=== PATIENT | female | born 1980 | race Caucasian/White ===

== ENCOUNTER 2018-05-25 12:08 | Emergency (ER) | payer BC, OTHER ==
--- NOTE | 2018-05-25 13:31 | RAD REPORT ---
EXAM DESCRIPTION: VAS - Extremity Venous Uni Ltd - 05/25/2018 1:22 pm CLINICAL HISTORY: PAIN Leg swelling and edema. COMPARISON: No comparisons FINDINGS: Left lower extremity venous system was interrogated with Doppler technique. Normal flow, c ompressibility and augmentation was noted. There is no DVT present. IMPRESSION: No evidence of left lower extremity deep venous thrombosis.
--- NOTE | 2018-05-25 13:32 | RAD REPORT ---
EXAM DESCRIPTION: VAS - Lower Extremity Artery Uni Ltd - 05/25/2018 1:22 pm CLINICAL HISTORY: PAIN COMPARISON: No comparisons FINDINGS: Grayscale, color, power and spectral Doppler interrogation of left lower extremity arteria l system was performed. An YADIEL was not performed. Triphasic waveforms are seen throughout. No stenosis or occlusion. No significant flow abnormality. IMPRESSION: Normal examination.
--- NOTE | 2018-05-25 13:44 | EDPHYS ---
Physician Documentation [facility] Name: Rand Prieto Age: 37 yrs Sex: Female : 1980 Arrival Date: 05/25/2018 Time: 12:13 Bed 13 Private MD: out of town, doctor ED Physician Rudy Fallon HPI: 05/25 13:16 This 37 yrs old Female presents to ER via Ambulatory with complaints of Leg rn Swelling. 13:16 The patient presents with pain, swelling. The complaints affect the posterior aspect of rn left knee and left calf. Onset: The symptoms/episode began/occurred at an unknown time. Modifying factors: The symptoms are alleviated by OTC meds, remaining still, the symptoms are aggravated by movement, weight bearing, bending knee. Severity of symptoms: At their worst the symptoms were mild, in the emergency department the symptoms are unchanged. The patient has not experienced similar symptoms in the past. 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 No risk factors for DVT, also no trauma, hurts more to bend knee and walk.. 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 - Social history:: Smoking status: Patient/guardian denies using tobacco. - Family history:: not pertinent. - Ebola Screening: : Patient denies travel to an Ebola-affected area in the 21 days before illness onset No symptoms or risks identified at this time. - Hospitalizations: : No recent hospitalization is reported. ROS: 13:16 Constitutional: Negative for fever, chills, and weight loss, Eyes: Negative for injury, rn pain, redness, and discharge, Cardiovascular: Negative for chest pain, palpitations, and edema, Respiratory: Negative for shortness of breath, cough, wheezing, and pleuritic chest pain, Abdomen/GI: Negative for abdominal pain, nausea, vomiting, diarrhea, and constipation, MS/Extremity: Negative for injury and deformity, + leg swelling and pain Skin: Negative for injury, rash, and discoloration, Neuro: Negative for headache, weakness, numbness, tingling, and seizure. Exam: 13:16 Constitutional: This is a well developed, well nourished patient who is awake, alert, rn and in no acute distress. MS/ Extremity: Pulses equal, no cyanosis. Neurovascular intact. Full, normal range of motion. Mild tenderness posterior knee and proximal calf, with approx 2cm greater diameter. No erythema, no fluctuance. Vital Signs: 12:49 BP 117 / 83; Pulse 101; Resp 20; Temp 97.8(TE); Pulse Ox 98% on R/A; Weight 68.04 kg; ph Height 5 ft. 4 in. (162.56 cm); Pain 5/10; 13:55 BP 110 / 77; Pulse 77; Resp 16; Pulse Ox 98% on R/A; mb3 12:49 Body Mass Index 25.75 (68.04 kg, 162.56 cm) ph MDM: 12:55 Patient medically screened. rn 13:43 Differential diagnosis: bakers cyst, DVT, arterial insufficiency. Data reviewed: vital rn signs, nurses notes, radiologic studies, doppler, ultrasound, and as a result, I will discharge patient. Counseling: I had a detailed discussion with the patient and/or guardian regarding: the historical points, exam findings, and any diagnostic results supporting the discharge/admit diagnosis, radiology results, the need for outpatient follow up, to return to the emergency department if symptoms worsen or persist or if there are any questions or concerns that arise at home. Special discussion: I discussed with the patient/guardian in detail that at this point there is no indication for admission to the hospital. It is understood, however, that if the symptoms persist or worsen the patient needs to return immediately for re-evaluation. 05/25 12:54 Order name: Lower Extremity Artery [employer] US; Complete Time: 13:45 rn 05/25 12:54 Order name: Extremity Venous [employer] US; Complete Time: 13:45 rn Administered Medications: No medications were administered Disposition: 05/25/18 13:44 Discharged to Home. Impression: Left Lower extremity swelling. - Condition is Stable. - Discharge Instructions: Edema, Peripheral Edema. - Medication Reconciliation Form, Thank You Letter, Antibiotic Education, Prescription Opioid Use form. - Follow up: Private Physician; When: As needed; Reason: Recheck today's complaints, Re-evaluation by your physician. - Problem is new. - Symptoms are unchanged. Signatures: Dispatcher [employer] EDRudy Hogue MD MD rn Hall, Patricia, RN RN Eber Rodriguez RN RN mb3 Corrections: (The following items were deleted from the chart) 13:57 13:44 05/25/2018 13:44 Discharged to Home. Impression: Left Lower extremity swelling. mb3 Condition is Stable. Forms are Medication Reconciliation Form, Thank You Letter, Antibiotic Education, Prescription Opioid Use. Follow up: Private Physician; When: As needed; Reason: Recheck today's complaints, Re-evaluation by your physician. Problem is new. Symptoms are unchanged. rn
--- NOTE | 2018-05-25 13:44 | ER ---
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 Transition of care: patient was not received from another setting of care. Onset of symptoms was May 25, 2018. Risk Assessment: Do you want to hurt yourself or someone else? Patient reports no desire to harm self or others. Initial Sepsis Screen: Does the patient meet any 2 criteria? No. Patient's initial sepsis screen is negative. Does the patient have a suspected source of infection? No. Patient's initial sepsis screen is negative. Care prior to arrival: None. 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 - Social history:: Smoking status: Patient/guardian denies using tobacco. - Family history:: not pertinent. - Ebola Screening: : Patient denies travel to an Ebola-affected area in the 21 days before illness onset No symptoms or risks identified at this time. - Hospitalizations: : No recent hospitalization is reported. Screenin:56 Abuse screen: Denies threats or abuse. Nutritional screening: No deficits noted. mb3 Tuberculosis screening: No symptoms or risk factors identified. Fall Risk None identified. Assessment: 13:50 General: Appears in no apparent distress. comfortable, Behavior is calm, cooperative, mb3 appropriate for age. Pain: Complains of pain in left calf Pain radiates to left hamstring, left Achilles and left heel. Neuro: No deficits noted. Cardiovascular: No deficits noted. Respiratory: No deficits noted. GI: No deficits noted. No signs and/or symptoms were reported involving the gastrointestinal system. : No signs and/or symptoms were reported regarding the genitourinary system. EENT: No signs and/or symptoms were reported regarding the EENT system. Derm: No deficits noted. No signs and/or symptoms reported regarding the dermatologic system. Vital Signs: 12:49 BP 117 / 83; Pulse 101; Resp 20; Temp 97.8(TE); Pulse Ox 98% on R/A; Weight 68.04 kg; ph Height 5 ft. 4 in. (162.56 cm); Pain 5/10; 13:55 BP 110 / 77; Pulse 77; Resp 16; Pulse Ox 98% on R/A; mb3 12:49 Body Mass Index 25.75 (68.04 kg, 162.56 cm) ph ED Course: 12:13 Patient arrived in ED. sb2 12:13 out of town, doctor is Private Physician. sb2 12:48 Triage completed. ph 12:49 Arm band placed on. ph 12:55 Rudy Fallon MD is Attending Physician. rn 12:55 Eber Aquino, RN is Primary Nurse. mb3 13:23 Lower Extremity Artery Uni Ltd US In Process Unspecified. EDMS 13:23 Extremity Venous Uni Ltd US In Process Unspecified. EDMS 13:50 No provider procedures requiring assistance completed. Patient did not have IV access mb3 during this emergency room visit. 13:56 Patient has correct armband on for positive identification. mb3 Administered Medications: No medications were administered Outcome: 13:44 Discharge ordered by . rn 13:56 Discharged to home ambulatory. mb3 13:56 Condition: stable 13:56 Discharge instructions given to patient, Instructed on discharge instructions, follow up and referral plans. Demonstrated understanding of instructions, follow-up care. 13:57 Patient left the ED. mb3 Signatures: Dispatcher [employer] EDMS Rudy Fallon MD MD rn Hall, Patricia RN RN Riya Long 2 Eber Aquino, RN RN mb3
[2018-05-25 14:00] VITALS: TEMP 97.8; O2SAT 98
[2018-05-25 14:01] VITALS: BP 110/77
== END 2018-05-25 13:57 | disposition home or self-care (01) ==
LOC: ER 12:08
DX: M79.89 Other specified soft tissue disorders (principal)
CPT/HCPCS: 93926; 93971; 99283

== ENCOUNTER 2019-01-19 06:46 | Emergency (ER) | payer OTHER ==
--- OUTSIDE RECORDS SUMMARY | 2019-01-19 06:48 | XMS REPORT ---
:1980 [facility] Address [address] [place] [address] Dr. Mai [address] [place] [id number] Care Team Providers Name Role Phone Unavailable Unavailable Unavailable Problems This patient has no known problems. Allergies, Adverse Reactions, Alerts This patient has no known allergies or adverse reactions. Medications This patient has no known medications.
--- NOTE | 2019-01-19 08:33 | RAD REPORT ---
EXAM DESCRIPTION: RAD - Chest Pa And Lat (2 Views) - 01/19/2019 7:55 am CLINICAL HISTORY: Cough, chest pressure and tightness COMPARISON: August 2016 TECHNIQUE: PA and lateral views of the chest were obtained. FINDINGS: The lungs are normal volume. No peripheral mass or consolidation. No failure or volume ove rload. Left parahilar region shows a rounded mass with central lucency. There is no correlate on the lateral view. This is believed to be a summation of normal structures mimicking a mass. Heart size is normal and central vasculature is within normal limits. No pleural effusion or pneumot horax seen. No acute bony finding noted. No aortic abnormality. IMPRESSION: No acute cardiopulmonary process. No significant change comparison. Repeat imaging or follow-up CT imaging could be performed if the patient remains symptomatic.
--- NOTE | 2019-01-19 08:52 | ER ---
Nurse's Notes [facility] Name: Rand Prieto Age: 38 yrs Sex: Female : 1980 Arrival Date: 01/19/2019 Time: 06:48 Bed 20 Private MD: Diagnosis: Acute upper respiratory infection, unspecified Presentation: 01/19 07:04 Presenting complaint: Patient states: having a cough with thick sputum for 2 days, also em having chest pressure and tightness, denies SOB, fever, or body aches. Transition of care: patient was not received from another setting of care. Onset of symptoms was January 17, 2019. Risk Assessment: Do you want to hurt yourself or someone else? Patient reports no desire to harm self or others. Initial Sepsis Screen: Does the patient meet any 2 criteria? HR > 90 bpm. No. Patient's initial sepsis screen is negative. Does the patient have a suspected source of infection? No. Patient's initial sepsis screen is negative. Care prior to arrival: None. 07:04 Method Of Arrival: Ambulatory em 07:16 Acuity: OLE 4 sv Triage Assessment: 07:11 General: Appears in no apparent distress. comfortable, Behavior is calm, cooperative. em Pain: Complains of pain in mid-sternal area Pain currently is 4 out of 10 on a pain scale. Cardiovascular: Capillary refill < 3 seconds Patient's skin is warm and dry. Respiratory: Airway is patent Respiratory effort is even, unlabored, Respiratory pattern is regular, symmetrical. 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 - Social history:: Smoking status: Patient/guardian denies using tobacco. - Ebola Screening: : Patient negative for fever greater than or equal to 101.5 degrees Fahrenheit, and additional compatible Ebola Virus Disease symptoms Patient denies exposure to infectious person Patient denies travel to an Ebola-affected area in the 21 days before illness onset No symptoms or risks identified at this time. Screenin:13 Abuse screen: Denies threats or abuse. Nutritional screening: No deficits noted. em Tuberculosis screening: No symptoms or risk factors identified. Fall Risk None identified. Assessment: 07:11 General: Appears in no apparent distress. comfortable, Behavior is calm, cooperative, em Denies fever. Pain: Complains of pain in mid-sternal area Pain does not radiate. Quality of pain is described as pressure, tightness Pain began 2-3 days ago. Neuro: Level of Consciousness is awake, alert, obeys commands, Oriented to person, place, time, situation, Gait is steady, Speech is normal. Cardiovascular: Reports shortness of breath, Denies nausea, vomiting, Capillary refill < 3 seconds Patient's skin is warm and dry. Respiratory: Reports cough that is productive, pain with cough since 2 days ago Airway is patent Respiratory effort is even, unlabored, Respiratory pattern is regular, symmetrical, Breath sounds are clear bilaterally. Denies shortness of breath. GI: Abdomen is flat, Patient currently denies nausea, vomiting. EENT: Nares are clear Oral mucosa is moist. Derm: Skin is intact, is healthy with good turgor, Skin is pink, warm \T\ dry. Musculoskeletal: Capillary refill < 3 seconds, Range of motion: intact in all extremities. 07:11 Reassessment: I agree with assessment completed by Austin Donaldson LVN . aa5 08:01 Reassessment: Patient appears in no apparent distress at this time. Patient and/or em family updated on plan of care and expected duration. Pain level reassessed. Patient is alert, oriented x 3, equal unlabored respirations, skin warm/dry/pink. pending x-ray results. Vital Signs: 07:11 BP 127 / 82; Pulse 102; Resp 20; Temp 98.5(O); Pulse Ox 98% on R/A; Weight 68.04 kg; em Height 5 ft. 5 in. (165.10 cm); Pain 4/10; 08:00 BP 117 / 87; Pulse 100; Resp 18; Pulse Ox 96% on R/A; em 07:11 Body Mass Index 24.96 (68.04 kg, 165.10 cm) em ED Course: 06:48 Patient arrived in ED. es 07:04 Austin Donaldson LVN is Primary Nurse. em 07:11 Virgilio White PA is PHCP. cp 07:11 Adriano Calvo MD is Attending Physician. cp 07:11 Arm band placed on. em 07:13 Patient has correct armband on for positive identification. Bed in low position. Call em light in reach. Pulse ox on. NIBP on. 07:13 Patient maintains SpO2 saturation greater than 95% on room air. em 07:16 Triage completed. sv 07:28 Flu and/or RSV swab sent to lab. Strep swab sent to lab. ms 07:41 Patient moved to radiology via wheelchair. jb2 07:54 X-ray completed. Patient tolerated procedure well. Patient moved back from radiology. jb2 07:56 XRAY Chest Pa And Lat (2 Views) In Process Unspecified. EDMS 09:20 No provider procedures requiring assistance completed. Patient did not have IV access em during this emergency room visit. Administered Medications: No medications were administered Outcome: 08:52 Discharge ordered by MD. cp 09:20 Discharged to home ambulatory. em 09:20 Condition: good 09:20 Discharge instructions given to patient, Instructed on discharge instructions, follow up and referral plans. medication usage, Demonstrated understanding of instructions, follow-up care, medications, Prescriptions given X 3. 09:21 Patient left the ED. em Signatures: Dispatcher [employer] Amna Castaneda, Kimberley Jacques RN, Jesse jb2 Austin Donaldson, QUOTATION CHECKER QUOTATION CHECKER Estefany Barriga ms, Audri, RN RN aa5 Virgilio White, PA PA cp
--- NOTE | 2019-01-19 08:53 | EDPHYS ---
Physician Documentation [facility] Name: Rand Prieto Age: 38 yrs Sex: Female : 1980 Arrival Date: 01/19/2019 Time: 06:48 Bed 20 Private MD: ED Physician Adriano Calvo HPI: 01/19 07:15 This 38 yrs old Female presents to ER via Ambulatory with complaints of cp Cough, Chest Congestion, Chest Tightness. 07:15 The patient or guardian reports cough, with productive sputum. Onset: The cp symptoms/episode began/occurred 2 day(s) ago. Associated signs and symptoms: Pertinent positives: sore throat, chest tightness, Pertinent negatives: chest pain, diarrhea, fever, vomiting. 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 - Social history:: Smoking status: Patient/guardian denies using tobacco. - Ebola Screening: : Patient negative for fever greater than or equal to 101.5 degrees Fahrenheit, and additional compatible Ebola Virus Disease symptoms Patient denies exposure to infectious person Patient denies travel to an Ebola-affected area in the 21 days before illness onset No symptoms or risks identified at this time. ROS: 07:20 Constitutional: Negative for chills, fever, poor PO intake. cp 07:20 Eyes: Negative for injury, pain, redness, and discharge. cp 07:20 ENT: Positive for sore throat, Negative for drainage from ear(s), ear pain, difficulty swallowing, difficulty handling secretions. 07:20 Respiratory: Positive for cough, Negative for wheezing. 07:20 Abdomen/GI: Negative for abdominal pain, nausea and vomiting, diarrhea, constipation. 07:20 : Negative for urinary symptoms. 07:20 Skin: Negative for rash. 07:20 Neuro: Negative for headache. 07:20 All other systems are negative. Exam: 07:28 Constitutional: The patient appears in no acute distress, alert, awake, non-toxic, well cp developed, well nourished. 07:28 Head/Face: Normocephalic, atraumatic. cp 07:28 Eyes: Periorbital structures: appear normal, Conjunctiva: normal, no exudate, no injection, Lids and lashes: appear normal, bilaterally. 07:28 ENT: External ear(s): are unremarkable, Ear canal(s): are normal, clear, TM's: bulging, is not appreciated, bilaterally, dullness, bilaterally, erythema, is not appreciated, bilaterally, Nose: is normal, Mouth: Lips: moist, Oral mucosa: moist, Posterior pharynx: Airway: no evidence of obstruction, patent, Tonsils: no enlargement, no exudate, Uvula: midline, erythema, that is mild, exudate, is not appreciated. 07:28 Neck: ROM/movement: is normal, is supple, without pain, no range of motions limitations, no meningismus, no nuchal rigidity. 07:28 Chest/axilla: Inspection: normal, Palpation: is normal, no crepitus, no tenderness. 07:28 Cardiovascular: Rate: tachycardic, Rhythm: regular. 07:28 Respiratory: the patient does not display signs of respiratory distress, Respirations: normal, no use of accessory muscles, no retractions, no splinting, no tachypnea, labored breathing, is not present, Breath sounds: decreased breath sounds, are not appreciated, stridor, is not appreciated, wheezing: is not appreciated. 07:28 Abdomen/GI: Inspection: abdomen appears normal. 07:28 Skin: no rash present. Vital Signs: 07:11 BP 127 / 82; Pulse 102; Resp 20; Temp 98.5(O); Pulse Ox 98% on R/A; Weight 68.04 kg; em Height 5 ft. 5 in. (165.10 cm); Pain 4/10; 08:00 BP 117 / 87; Pulse 100; Resp 18; Pulse Ox 96% on R/A; em 07:11 Body Mass Index 24.96 (68.04 kg, 165.10 cm) em MDM: 07:11 Patient medically screened. cp 07:35 Differential Diagnosis: Bronchitis Influenza Otitis Media Viral Syndrome Pneumonia. cp 08:50 Data reviewed: vital signs, nurses notes, lab test result(s), radiologic studies, plain cp films. 08:50 Test interpretation: by ED physician or midlevel provider: plain radiologic studies. cp Counseling: I had a detailed discussion with the patient and/or guardian regarding: the historical points, exam findings, and any diagnostic results supporting the discharge/admit diagnosis, lab results, radiology results, to return to the emergency department if symptoms worsen or persist or if there are any questions or concerns that arise at home. 01/19 07:21 Order name: Influenza Screen (a \T\ B); Complete Time: 08:11 cp 01/19 08:12 Interpretation: Reviewed. cp 01/19 07:21 Order name: Strep cp 01/19 08:12 Interpretation: Reviewed. 01/19 07:21 Order name: XRAY Chest Pa And Lat (2 Views); Complete Time: 08:34 cp 01/19 08:34 Interpretation: Report reviewed. 01/19 07:21 Order name: Urine Dipstick-Ancillary (obtain specimen); Complete Time: 07:28 cp 01/19 07:34 Order name: Urine Dipstick--Ancillary (enter results) eb 01/19 07:34 Order name: Urine --Ancillary (enter results) eb 01/19 07:21 Order name: Urine Test (obtain specimen); Complete Time: 07:28 cp Administered Medications: No medications were administered Disposition: 01/19/19 08:52 Discharged to Home. Impression: Acute upper respiratory infection, unspecified. - Condition is Stable. - Discharge Instructions: Upper Respiratory Infection, Adult. - Prescriptions for Ibuprofen 800 mg Oral Tablet - take 1 tablet by ORAL route every 8 hours As needed take with food; 30 tablet. Tessalon Perles 100 mg Oral Capsule - take 1 capsule by ORAL route every 8 hours As needed; 15 capsule. Albuterol Sulfate 90 mcg/actuation - inhale 1-2 puff by INHALATION route every 4-6 hours; 1 Inhaler. - Medication Reconciliation Form, Thank You Letter, Antibiotic Education, Prescription Opioid Use form. - Follow up: Private Physician; When: 2 - 3 days; Reason: Worsening of condition. - Problem is new. - Symptoms are unchanged. Addendum: 01/21/2019 19:42 Co-signature as Attending Physician, Adriano Calvo MD. g s Signatures: Dispatcher [employer] Austin Fitzpatrick, MEDICAL CLAIMS SPECIALIST MEDICAL CLAIMS SPECIALIST em Virgilio White PA PA cp Starr, Gregory, MD MD gs Corrections: (The following items were deleted from the chart) 01/19 09:21 08:52 01/19/2019 08:52 Discharged to Home. Impression: Acute upper respiratory em infection, unspecified. Condition is Stable. Forms are Medication Reconciliation Form, Thank You Letter, Antibiotic Education, Prescription Opioid Use. Follow up: Private Physician; When: 2 - 3 days; Reason: Worsening of condition. Problem is new. Symptoms are unchanged. cp
[2019-01-19 09:22] LABS: Urine Blood NEGATIVE (NEG); Urine Glucose NEGATIVE (NEG); Urine Protein NEGATIVE (NEG)
[2019-01-19 09:26] VITALS: TEMP 98.5
[2019-01-19 09:28] VITALS: BP 117/87; O2SAT 96
== END 2019-01-19 09:21 | disposition home or self-care (01) ==
LOC: ER 06:46
DX: J06.9 Acute upper respiratory infection, unspecified (principal)
CPT/HCPCS: 71046; 81003; 81025; 87081; 87804; 99284

== ENCOUNTER 2021-01-04 18:14 | Emergency (ER) | payer OTHER, SELFPAY ==
--- OUTSIDE RECORDS SUMMARY | 2021-01-04 18:16 | XMS REPORT | Continuity of Care Document ---
:1980 Author Organization [facility] t Address [address] [place] [address] Care Team Providers Name Role Phone GLENCROSS Attending Clinician Unavailable 2, Wlns Covid Surv Attending Clinician Unavailable Surv, Wlns Covid Attending Clinician Unavailable Green ISSUER Attending Clinician Doctor Unassigned, Name Attending Clinician Unavailable Bernardo Campbell Attending Clinician Payers Payer Name Policy Type Policy Effective Date Expiration Date Sour ce Number BCBSBCBS CHOICE [id number] 2015 [place] PPO/FEDERAL 00:00:00 [facility] EMPL [id number] 2015-Pres entPPO Problems This patient has no known problems. Allergies, Adverse Reactions, Alerts Allergy Allergy Status Severity Reaction(s) Onset Inactive Treating Comm ents Source Name Type Date Date Clinician No Known No Known Active Memori a Medicati Medicati l on on [place] Allergie Allergie s s Social History Social Habit Start Date Stop Date Quantity Comments Source Sex Assigned At [place] barcenas [facility] Smoking Status Start Date Stop Date Source Social History [facility] Medications Ordered Filled Start Stop Current Ordering Indication Dosage Frequency Signature Comments Components Source Medication Medication Date Date Medication? Clinician (SIG) Name Name etodolac Yes 500 mg = 1 Mem oria 500 mg oral 9-27 tab, PO, l tablet 18:06: BID, with Jefferson n 00 foods prn pain, # 30 tab, 0 Refill(s), Pharmacy: [id number] Cyclobenzap Yes 10 mg = 1 M emoria rine 9-27 tab, PO, l hydrochlori 18:06: TID, PRN He rmann de 10 MG 00 for spasm, Oral Tablet # 15 tab, [Flexeril] 0 Refill(s), Pharmacy: [facility] #[id number] tramadol 2019- Yes 50 mg = 1 Guillaumemelba [place] hydrochlori 9-27 tab, PO, l de 50 MG 18:06: Q6H, PRN Shaista nn Oral Tablet 00 Pain, X 3 day, # 12 tab, 0 Refill(s) Escitalopra 2019 Yes 10 mg = 1 M emoria m 10 MG -27 tab, PO, l Oral Tablet 16:52: Daily, # He rmann [Lexapro] 00 30 tab, 0 Refill(s) Immunizations Ordered Immunization Filled Immunization Date Status Commen ts Source Name Name EyeVerifyID-19 MRNA 2020-11-15 Completed [place] VACCINATION 00:00:00 [facility] PFIZER COVID-19 MRNA 2020-10-22 Completed [place] VACCINATION 00:00:00 [facility] Vital Signs Vital Name Observation Time Observation Value Comments Source Systolic (mm Hg) 2019-08-03 16:25:00 Guillaume riadanielle [place] Diastolic (mm Hg) 2019-08-03 16:25:00 [facility] orial [place] Heart Rate 2019-08-03 16:25:00 [facility] Respitory Rate 2019-08-03 16:25:00 Laure Allen Temperature Oral (F) 2019-08-03 16:25:00 97.5 F [facility] Height 2019-08-03 16:25:00 162.56 cm [facility] Weight 2019-08-03 16:25:00 [facility] BMI Calculated 2019-08-03 16:25:00 Laure Allen Procedures Procedure Date / Time Performed Performing Clinician Sourshreya e COVID-19 QUALITATIVE PCR 2020-10-23 10:13:00 Maximilian DonohueIDTayler19 QUALITATIVE PCR 2020-10-09 13:43:00 Maximilian Donohue QUALITATIVE PCR 2020-09-01 13:34:00 Maximilian Donohue QUALITATIVE PCR 2020-05-16 11:04:00 Maximilian Donohue MUMPS VIRUS ANTIBODY, 2020-03-18 11:12:00 Maximilian Donohue IGG MEASLES (RUBEOLA) 2020-03-18 11:12:00 Maximilian Donohueu narinder Kumar ANTIBODY IGG RUBELLA AB IGG 2020-03-18 11:12:00 Maximilian Donohuebernardo on [facility] VARICELLA ZOSTER VIRUS 2020-03-18 11:12:00 Maximilian Donohue AB, IGG HEPATITIS B SURFACE 2020-03-18 11:12:00 Maximilian Donohue Deepak [place] [facility] ANTIBODY Plan of Care Planned Activity Planned Date Details Comments Source Future Scheduled 2020-06-07 INFLUENZA VACCINE [place] [facility] Test 00:00:00 [code = INFLUENZA VACCINE] Future Scheduled 2001 Screening for [facility] Test 00:00:00 malignant neoplasm of cervix (procedure) [code = 528653713] Future Scheduled 1998 Hepatitis C [place] [facility] Test 00:00:00 screening (procedure) [code = 051617973] Encounters Start End Encounter Admission Attending Care Care Encounter Source Date/Time Date/Time Type Type Clinicians Facility Department ID 2020-11-15 2020-11-15 Outpatient [facility] [id number] [place] 00:00:00 00:00:00 MAXIMILIAN [address] 2020-10-23 2020-10-23 [id number] [place] 00:00:00 00:00:00 MAXIMILIAN [address] 2020-10-09 2020-10-09 [facility] 2[facility] [id number] [place] 00:00:00 00:00:00 MAXIMILIAN [address] 2020-09-01 2020-09-01 [facility] [id number] [id number] [place] 00:00:00 00:00:00 MAXIMILIAN [address] 2020-08-22 2020-08-22 Outpatient GLENCROSS, [facility] [id number] [place] 00:00:00 00:00:00 MAXIMILIAN [address] 2020-05-16 2020-05-16 Outpatient [facility] [id number] [place] 00:00:00 00:00:[address] 2020-05-16 2020-05-16 Outpatient MARTÍN, [facility] [id number] [place] 00:00:00 00:00:00 MAXIMILIAN 111 [facility] 2020-03-18 2020-03-18 Outpatient [facility] [id number] [address] [place] [address] 00:00:00 00:00:00 127 [facility] 2020-01-12 2020-01-12 [place] [id number] 16:37:16 16:52:16 Care [facility] [id number] Surgical [id number] Specialti [id number] [address] 2020-01-12 2020-01-12 Orders Doctor DONNY [id number] 00:00:00 00:00:00 Only Unassigned, VAISHNAVI [id number] [place] [facility] [id number] 2019-08-03 2019-08-03 Outpatient Le, [facility] [id number] 11:30:00 23:59:59 [facility] 00 T Results Test Description Test Time Test Comments Results Result Comments Source COVID-19 qualitative PCR 2020-10-23 16:22:53 Test Item Value Reference Range Interpretation Comme nts Interpretation (test code = Negative results do not 3848301) preclude 2019-nCoV infection and should not be used as the sole basis for treatment or other patient management decisions. Negative results must be combined with clinical observations, patient history, and epidemiological information. COVID-19 qualitative PCR Not-Detected Not-Detected result (test code = 51381-0) COVID-19 qualitative PCR See link below for PDF Lab Case Number: (test code = 7070) Report [id number] [place] MethodistMumps virus antibody, [id number] 18:20:26 Test Item Value Reference Range Interpretation Comments Mumps Ab, IgG (test code Positive Negative A IgG antibody to = 8581579) Mumps detected. This may indicate th at the patient was exposed to Mump s through infecti on or vaccination. Lab Interpretation (test Abnormal code = 80325-5) [place] MethodistVaricella zoster virus Ab, [id number] 18:20:26 Test Item Value Reference Range Interpretation Comments VZV IgG (test code = Positive Negative A IgG ant ibody to VZV 5403-1) detected. This may indicate that t he patient was exp osed to VZV through infection or vaccination. Lab Interpretation (test Abnormal code = 40308-7) Ambrocio LozaistMeasles (rubeola) antibody [id number] 18:20:26 Test Item Value Reference Range Interpretation Comments Measles (rubeola) Ab, IgG Positive Negative A Ig G antibody to (test code = 1261810) Measle s detected. This may indica te that the patien t was exposed to Parag les through infecti on or vaccination. Lab Interpretation (test Abnormal code = 51465-1) Ambrocio MethodistRubella Ab [id number] 18:19:47 Test Item Value Reference Range Interpretation Comments Rubella IgG antibody Positive Negative IgG ant ibody levels are (test code = 47079-4) at a l evel that are considered to i ndicate positive immuni ty Ambrocio KumarHepatitis B surface [id number] 16:54:19 Test Item Value Reference Range Interpretation Comments Hepatitis B surface Ab (test code = Reactive Non-reactive A 13044-8) Lab Interpretation (test code = Abnormal 04539-7) Ambrocio Kumar
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
[2021-01-04] MEDS ORDERED: IBUPROFEN 200 MG TAB PO ONE (19:08)
[2021-01-04] MEDS ORDERED: IBUPROFEN 400 MG TAB ONE (19:08)
[2021-01-04 21:21] VITALS: BP 136/88; TEMP 98; O2SAT 100
== END 2021-01-04 18:59 | disposition home or self-care (01) ==
LOC: ER 18:14
DX: S16.1XXA Strain of muscle, fascia and tendon at neck level, initial encounter (principal); S40.012A Contusion of left shoulder, initial encounter; V49.09XA Driver injured in collision with other motor vehicles in nontraffic accident, initial encounter; Z98.82 Breast implant status
CPT/HCPCS: 99284

== ENCOUNTER 2024-02-07 14:31 | Observation (INO) | payer OTHER ==
[2024-02-07] MEDS ORDERED: ASPIRIN 81 MG CHEWABLE TABLET ONE (14:48)
--- NOTE | 2024-02-07 15:27 | RAD REPORT ---
EXAM DESCRIPTION: RAD - Chest Single View - 02/07/2024 3:16 pm CLINICAL HISTORY: CHEST PAIN Chest pain. COMPARISON: Chest Pa And Lat (2 Views) dated 01/19/2019; Chest Single View dated 08/23/2016; Chest Pa And Lat (2 Views) dated 08/21/2016 FINDINGS: Portable technique limits examination quality. The lungs are grossly clear. The heart is normal in size. No displaced fractures. IMPRESSION: No acute intrathoracic process suspected.
[2024-02-07 15:36] LABS: Absolute Basophils 0.1 K/uL (0-0.5); Absolute Eosinophils 0.1 K/uL (0-0.5); Absolute Lymphocytes (CBC) 1.6 K/uL (0.7-4.9); Absolute Monocytes 0.4 K/uL (0.1-1.3); Absolute Neutrophil 5.3 K/uL (1.8-8.0); Basophils % 0.8 % (0-1.3); Eosinophils % 0.9 % (0-4.4); Hematocrit 29.7 % (36.0-45.0); Hemoglobin 8.9 g/dL (12.0-15.0); Lymphocytes % 22.1 % (15.3-44.8); MCH 18.2 pg (27.0-35.0); MCHC 29.9 g/dL (32.0-36.0); MCV 60.8 fL (80-100); MPV 8.7 fL (7.6-11.3); Monocytes % 4.9 % (3.3-12.3); Neutrophils % 71.3 % (41.7-73.7); Platelets 400 thou/uL (152-406); RBC Red Blood Cell Count 4.88 M/uL (3.86-4.86); Red Cell Distribution Width 20.1 % (12.1-15.2)
[2024-02-07 15:54] LABS: Albumin 3.9 g/dL (3.4-5.0); Albumin/Globulin Ratio 1.1 (1.1-1.8); Anion Gap 9.3 mEq/L (5.0-15.0); Bilirubin Direct 0.1 mg/dL (0-0.2); Bilirubin Indirect, Calculated 0.3 mg/dL (0.2-0.8); Bilirubin Total 0.4 mg/dL (0.2-1.0); Globulin 3.5 g/dL (2.3-3.5); Magnesium 1.8 mg/dL (1.6-2.4); Potassium 3.3 mEq/L (3.5-5.1); Protein, Total 7.4 g/dL (6.4-8.2); Troponin High Sensitivity 3.2 pg/mL (<58.9)
--- NOTE | 2024-02-07 16:57 | RAD REPORT ---
EXAM DESCRIPTION: CT - Chest For Pe Angio - 02/07/2024 4:50 pm CLINICAL HISTORY: Chest pain. CHEST PAIN COMPARISON: Chest Angio dated 08/21/2016 TECHNIQUE: CT angiogram of the pulmonary arteries was performed with MIP. All CT scans are performed using dose optimization technique as appropriate and may include automated exposure control or mA/KV adjustment according to patient size. FINDINGS: No evidence of pulmonary thromboembolism. No acute aortic finding demonstrated. The lungs are clear. No significant pericardial or pleural fluid. No concerning bony finding. Gallstone noted the gallbladder. IMPRESSION: No evidence of pulmonary thromboembolism. No acute lung findings. Cholelithiasis.
[2024-02-07] MEDS ORDERED: MORPHINE 4 MG/ML SYR ONE (17:07)
[2024-02-07] MEDS ORDERED: ONDANSETRON 4 MG/2 ML VIAL ONE (17:07)
[2024-02-07 17:24] LABS: Anisocytosis 1+; Blood Morphology Comment NOTED (NOT SEEN); Hypochromasia 2+; Microcytosis 2+; Platelet Estimate ADEQ; White Blood Cell Scan OK (OK)
--- NOTE | 2024-02-07 19:07 | ER ---
Nurse's Notes [facility] Name: Rand Prieto Age: 43 yrs Sex: Female : 1980 Arrival Date: 02/07/2024 Time: 14:31 Bed 13 Private MD: Diagnosis: Chest pain, unspecified Presentation: 02/06 14:34 Chief complaint: Patient states: Left upper back pain for about a week, today left nj1 sided chest pain. 14:34 Coronavirus screen: Vaccine status: Patient reports receiving the 2nd dose of the covid nj1 vaccine. Ebola Screen: Patient denies travel to an Ebola-affected area in the 21 days before illness onset. Initial Sepsis Screen: Does the patient meet any 2 criteria? HR > 90 bpm. No. Patient's initial sepsis screen is negative. Does the patient have a suspected source of infection? No. Patient's initial sepsis screen is negative. Risk Assessment: Do you want to hurt yourself or someone else? Patient reports no desire to harm self or others. Onset of symptoms was February 07, 2024. 14:34 Method Of Arrival: Ambulatory [facility] 14:34 Acuity: OLE 3 nj1 Historical: - Allergies: 14:40 No Known Allergies; nj1 - PMHx: 14:40 Anxiety; nj1 - Immunization history:: Client reports receiving the 2nd dose of the Covid vaccine. - Infectious Disease History:: Denies. - Social history:: Smoking status: Patient denies any tobacco usage or history of. - Family history:: not pertinent. Screenin:15 [facility] ED Fall Risk Assessment (Adult) History of falling in the last 3 months, db including since admission No falls in past 3 months (0 pts) Confusion or Disorientation No (0 pts) Intoxicated or Sedated No (0 pts) Impaired Gait No (0 pts) Mobility Assist Device Used No (0 pt) Altered Elimination No (0 pt) Score/Fall Risk Level 0 - 2 = Low Risk Oriented to surroundings, Maintained a safe environment. Abuse screen: Denies threats or abuse. Denies injuries from another. Nutritional screening: No deficits noted. Tuberculosis screening: No symptoms or risk factors identified. Assessment: 15:15 Reassessment: Patient appears in no apparent distress at this time. Patient and/or db family updated on plan of care and expected duration. Pain level reassessed. Patient is alert, oriented x 3, equal unlabored respirations, skin warm/dry/pink. General: Appears in no apparent distress. comfortable, Behavior is calm, cooperative. Pain: Complains of pain in chest Pain radiates to left arm Pain Pain began gradually. Neuro: Level of Consciousness is awake, alert, obeys commands, Oriented to person, place, time, situation. Cardiovascular: Capillary refill < 3 seconds Patient's skin is warm and dry. Respiratory: Airway is patent Respiratory effort is even, unlabored, Respiratory pattern is regular, symmetrical. 16:00 Reassessment: Patient appears in no apparent distress at this time. Patient and/or db family updated on plan of care and expected duration. Pain level reassessed. Patient is alert, oriented x 3, equal unlabored respirations, skin warm/dry/pink. 17:00 Reassessment: Patient appears in no apparent distress at this time. Patient and/or db family updated on plan of care and expected duration. Pain level reassessed. Patient is alert, oriented x 3, equal unlabored respirations, skin warm/dry/pink. 18:00 Reassessment: Patient appears in no apparent distress at this time. Patient and/or db family updated on plan of care and expected duration. Pain level reassessed. Patient is alert, oriented x 3, equal unlabored respirations, skin warm/dry/pink. General: Appears in no apparent distress. comfortable, Behavior is calm, cooperative. 18:30 Reassessment: NOTIFIED DR. HARRIS PATIENT REQUESTING NITRO FOR PAIN 5/10 IN CHEST. db Pain: Pain currently is 5 out of 10 on a pain scale. 19:20 Reassessment: Patient is alert, oriented x 3, equal unlabored respirations, skin jj7 warm/dry/pink. ASSUMED CARE OF PT. PT SITTING IN BED. C/O CP. ORDERED NITRO GIVEN. PT TOLERATING WELL. VS STABLE. CALL ERWIN IN REACH NO ADDITIONAL NEEDS AT THIS TIME. Vital Signs: 14:34 BP 144 / 94; Pulse 114; Resp 18; Temp 97.1(TE); Pulse Ox 99% on R/A; Weight 72.57 kg; nj1 Height 5 ft. 5 in. ; Pain 4/10; 15:15 BP 119 / 62; Pulse 91; Resp 14; Pulse Ox 99% on R/A; db 16:00 BP 116 / 73; Pulse 71; Resp 18; Pulse Ox 100% on R/A; db 17:15 BP 133 / 89; Pulse 79; Resp 16; Pulse Ox 100% on R/A; db 18:00 BP 147 / 81; Pulse 67; Resp 18; Pulse Ox 99% on R/A; db 19:00 BP 125 / 75; Pulse 67; Resp 14; Pulse Ox 99% on R/A; db 19:20 BP 130 / 94; Pulse 74; Resp 18; Pulse Ox 98% ; Pain 5/10; jj7 20:29 BP 134 / 93; Pulse 92; Resp 16; Pulse Ox 100% ; jj7 21:30 BP 117 / 76; Pulse 80; Resp 17; Pulse Ox 99% ; jj7 14:34 Body Mass Index 26.63 (72.57 kg, 165.1 cm) nj1 14:34 Pain Scale: Adult nj1 19:20 Pain Scale: Adult jj7 Vitals: 16:00 Cardiac Rhythm Assessment Regular. db ED Course: 14:32 Patient arrived in ED. mg5 14:33 Familia Harris MD is Attending Physician. rt 14:40 Triage completed. nj1 14:41 Arm band placed on left wrist. nj1 14:44 Mary Jo Camargo RN is Primary Nurse. db 15:00 EKG done, by ED staff, reviewed by Familia Harris MD. db 15:05 Initial lab(s) drawn, by ma, sent to lab. Inserted saline lock: 22 gauge in right db antecubital area, using aseptic technique. Blood collected. 15:15 Patient maintains SpO2 saturation greater than 95% on room air. db 15:18 XRAY Chest (1 view) In Process Unspecified. EDMS 15:27 Patient has correct armband on for positive identification. Bed in low position. Call db light in reach. Side rails up X 1. Provided Education on: LABS AND ANTIBIOTICS. Client placed on continuous cardiac and pulse oximetry monitoring. NIBP monitoring applied. railway station manager on. Pulse ox on. NIBP on. Warm blanket given. 16:52 CT Chest For PE Angio In Process Unspecified. EDMS 19:05 Kyle Grey MD is Hospitalizing Provider. rt 19:05 Report given to OSMAR BOWEN. db 19:39 Taryn Joy RN is Primary Nurse. jj7 21:47 No provider procedures requiring assistance completed. Patient admitted, IV remains in jj7 place. Administered Medications: 14:54 Drug: Aspirin PO Chewable Tablet 324 mg PO once; 81 mg tablets x 4 Route: PO; rs5 20:29 Follow up: Response: No adverse reaction jj7 17:12 Drug: morphine IVP or IV 4 mg IVP once over 4 mins Route: IVP; Infused Over: 4 mins; db Site: right antecubital; 19:20 Follow up: Response: Pain is decreased jj7 17:12 Drug: Ondansetron IVP 4 mg IVP once; over 2 minutes Route: IVP; Site: right antecubital;db 21:48 Follow up: Response: Marked relief of symptoms jj7 19:20 Drug: Nitroglycerin Sublingual 0.4 mg Sublingual once; every five minute if needed x3 jj7 Route: Sublingual; 19:45 Drug: Nitroglycerin Sublingual 0.4 mg Sublingual once; every five minute if needed x3 jj7 Route: Sublingual; 19:50 Drug: Nitroglycerin Sublingual 0.4 mg Sublingual once; every five minute if needed x3 jj7 Route: Sublingual; 20:29 Follow up: Response: Pain is decreased jj7 Medication: 15:15 VIS not applicable for this client. db Outcome: 19:06 Decision to Hospitalize by Provider. rt 20:54 Admitted to Med/surg room 427, Report called to SBAR FAXED TO 4TH FLOOR. CRISTIAN PRASAD jj7 RECEIVED REPORT 21:47 Condition: improved jj7 21:47 Patient left the ED. jj7 Signatures: Dispatcher [employer] EDFL Taryn Joy RN RN jj7 Mary Jo Camargo, RN RN db Familia Harris MD MD rt Mark Claire RN RN rs5 Darline Rosen RN RN nj1 Latasha Avery mg5 Corrections: (The following items were deleted from the chart) 19:42 19:20 BP 122 / 64; Pulse 74bpm; Resp 18bpm; Pulse Ox 97%; Pain 5/10, Adult; jj7 jj7
--- NOTE | 2024-02-07 19:07 | EDPHYS ---
Physician Documentation [facility] Name: Rand Prieto Age: 43 yrs Sex: Female : 1980 Arrival Date: 02/07/2024 Time: 14:31 Bed 13 Private MD: ED Physician Familia Banks HPI: 02/06 14:56 This 43 yrs old Female presents to ER via Ambulatory with complaints of Chest Pain. rt 14:56 Patient presents to the ED with a left-sided chest pain. The patient states that she rt woke up with a left-sided back pain which she attributed to prior chronic back pain. States since he subsequently developed the chest pain. Denies other symptoms, acute complaints, symptoms are moderate in severity, no other aggravating or elevating factors.. Historical: - Allergies: 14:40 No Known Allergies; nj1 - PMHx: 14:40 Anxiety; nj1 - Immunization history:: Client reports receiving the 2nd dose of the Covid vaccine. - Infectious Disease History:: Denies. - Social history:: Smoking status: Patient denies any tobacco usage or history of. - Family history:: not pertinent. ROS: 14:56 Constitutional: Negative for fever, chills, and weight loss, Respiratory: Negative for rt shortness of breath, cough, wheezing, and pleuritic chest pain, Abdomen/GI: Negative for abdominal pain, nausea, vomiting, diarrhea, and constipation, MS/Extremity: Negative for injury and deformity, Skin: Negative for injury, rash, and discoloration, Neuro: Negative for headache, weakness, numbness, tingling, and seizure, 14:56 Cardiovascular: Positive for chest pain, Negative for edema, 14:56 Back: Positive for pain at rest, Negative for injury or acute deformity, Exam: 14:56 Constitutional: This is a well developed, well nourished patient who is awake, alert, rt and in no acute distress. Head/Face: Normocephalic, atraumatic. Neck: Trachea midline, no thyromegaly or masses palpated, and no cervical lymphadenopathy. Supple, full range of motion without nuchal rigidity, or vertebral point tenderness. No Meningismus. Respiratory: Lungs have equal breath sounds bilaterally, clear to auscultation and percussion. No rales, rhonchi or wheezes noted. No increased work of breathing, no retractions or nasal flaring. Abdomen/GI: Soft, non-tender, with normal bowel sounds. No distension or tympany. No guarding or rebound. No evidence of tenderness throughout. Back: No spinal tenderness. No costovertebral tenderness. Full range of motion. Skin: Warm, dry with normal turgor. Normal color with no rashes, no lesions, and no evidence of cellulitis. MS/ Extremity: Pulses equal, no cyanosis. Neurovascular intact. Full, normal range of motion. Neuro: Awake and alert, GCS 15, oriented to person, place, time, and situation. Cranial nerves II-XII grossly intact. Motor strength 5/5 in all extremities. Sensory grossly intact. Cerebellar exam normal. Normal gait. 14:56 ECG was reviewed by the Attending Physician. Vital Signs: 14:34 BP 144 / 94; Pulse 114; Resp 18; Temp 97.1(TE); Pulse Ox 99% on R/A; Weight 72.57 kg; nj1 Height 5 ft. 5 in. ; Pain 4/10; 15:15 BP 119 / 62; Pulse 91; Resp 14; Pulse Ox 99% on R/A; db 16:00 BP 116 / 73; Pulse 71; Resp 18; Pulse Ox 100% on R/A; db 17:15 BP 133 / 89; Pulse 79; Resp 16; Pulse Ox 100% on R/A; db 18:00 BP 147 / 81; Pulse 67; Resp 18; Pulse Ox 99% on R/A; db 19:00 BP 125 / 75; Pulse 67; Resp 14; Pulse Ox 99% on R/A; db 19:20 BP 130 / 94; Pulse 74; Resp 18; Pulse Ox 98% ; Pain 5/10; jj7 20:29 BP 134 / 93; Pulse 92; Resp 16; Pulse Ox 100% ; jj7 21:30 BP 117 / 76; Pulse 80; Resp 17; Pulse Ox 99% ; jj7 14:34 Body Mass Index 26.63 (72.57 kg, 165.1 cm) nj 14:34 Pain Scale: Adult nj1 19:20 Pain Scale: Adult jj7 MDM: 14:41 Patient medically screened. rt 20:51 Differential diagnosis: abnormal EKG, coronary artery disease chest wall pain, rt congestive heart failure Cholelithiasis pneumonia, pneumothorax. HEART Score: History: Moderately Suspicious (1), ECG: Non specific repolarization disturbance / LBTB / PM (1), Age: < or = 45 years (0), Risk Factors: > or = 3 Risk factors for atherosclerotic disease (2), Troponin: < or = 1 x Normal Limit (0), Total Score = 4. The patient was given aspirin in the Emergency Department. Data reviewed: vital signs, nurses notes, lab test result(s), EKG, radiologic studies. Consideration of Admission/Observation Patient was admitted/placed on observation. Management of patient was discussed with the following: Hospitalist: Agrees to admit. I considered the following discharge prescriptions or medication management in the emergency department Medications were administered in the Emergency Department. See MAR. Independent interpretation of the following test(s) in the Emergency Department X-Ray: My interpretation is No pneumonia seen on interpretation of x-ray images. Counseling: I had a detailed discussion with the patient and/or guardian regarding the historical points, exam findings, and any diagnostic results supporting the discharge/admit diagnosis, lab results, radiology results, the need for further work-up and treatment in the hospital. Response to treatment: the patient's symptoms have markedly improved after treatment. 02/06 14:46 Order name: Basic Metabolic Panel; Complete Time: 16:02 rt 02/06 14:46 Order name: CBC with Diff; Complete Time: 17:27 rt 02/06 14:46 Order name: D-Dimer; Complete Time: 16:02 rt 02/06 14:46 Order name: LFT's; Complete Time: 16:02 rt 02/06 14:46 Order name: Magnesium; Complete Time: 16:02 rt 02/06 14:46 Order name: Troponin HS; Complete Time: 16:02 rt 02/06 14:46 Order name: Test, Serum; Complete Time: 16:02 rt 02/06 17:24 Order name: CBC Smear Scan; Complete Time: 17:27 EDMS 02/06 19:48 Order name: Urinalysis w/ reflexes EDMS 02/06 19:48 Order name: CBC with Automated Diff EDMS 02/06 19:48 Order name: CBC with Automated Diff EDMS 02/06 19:48 Order name: Comprehensive Metabolic Panel EDMS 02/06 19:48 Order name: Comprehensive Metabolic Panel EDMS 02/06 19:48 Order name: Troponin High Sensitivity EDMS 02/06 19:48 Order name: Troponin High Sensitivity [facility] 02/06 19:48 Order name: Troponin High Sensitivity [facility] 02/06 19:48 Order name: Troponin High Sensitivity [facility] 02/06 14:46 Order name: XRAY Chest (1 view); Complete Time: 15:31 rt 02/06 16:34 Order name: CT Chest For PE Angio; Complete Time: 16:58 rt 02/06 19:48 Order name: CONS Physician Consult [facility] 02/06 14:46 Order name: Cardiac monitoring; Complete Time: 15:27 rt 02/06 14:46 Order name: EKG - Nurse/Tech; Complete Time: 15:27 rt 02/06 14:46 Order name: IV Saline Lock; Complete Time: 15:27 rt 02/06 14:46 Order name: Labs collected and sent; Complete Time: 15:27 rt 02/06 14:46 Order name: O2 Per Protocol; Complete Time: 15:27 rt 02/06 14:46 Order name: O2 Sat Monitoring; Complete Time: 15:27 rt EC:56 Rate is 94 beats/min. Rhythm is regular, Normal Sinus Rhythm with No ectopy. QRS [place] rt is Normal. VA interval is normal. QRS interval is normal. QT interval is normal. No Q waves. No ST changes noted. Administered Medications: 14:54 Drug: Aspirin PO Chewable Tablet 324 mg PO once; 81 mg tablets x 4 Route: PO; rs5 20:29 Follow up: Response: No adverse reaction jj7 17:12 Drug: morphine IVP or IV 4 mg IVP once over 4 mins Route: IVP; Infused Over: 4 mins; db Site: right antecubital; 19:20 Follow up: Response: Pain is decreased jj7 17:12 Drug: Ondansetron IVP 4 mg IVP once; over 2 minutes Route: IVP; Site: right antecubital;db 21:48 Follow up: Response: Marked relief of symptoms jj7 19:20 Drug: Nitroglycerin Sublingual 0.4 mg Sublingual once; every five minute if needed x3 jj7 Route: Sublingual; 19:45 Drug: Nitroglycerin Sublingual 0.4 mg Sublingual once; every five minute if needed x3 jj7 Route: Sublingual; 19:50 Drug: Nitroglycerin Sublingual 0.4 mg Sublingual once; every five minute if needed x3 jj7 Route: Sublingual; 20:29 Follow up: Response: Pain is decreased jj7 Disposition Summary: 02/07/24 19:06 Hospitalization Ordered Notes: Hospitalization Status: Observation rt Provider: Kyle Grey rt Location: Telemetry/MedSurg (observation) rt Condition: Stable rt Problem: new rt Symptoms: have improved rt Bed/Room Type: Standard rt Room Assignment: 427(02/07/24 20:40) rv1 Diagnosis - Chest pain, unspecified rt Forms: - Medication Reconciliation Form rt - SBAR form rt - Leadership Thank You Letter rt Signatures: Dispatcher [employer] Taryn Means RN RN jj7 Mary Jo Camargo RN RN db Familia Banks MD MD rt Mireille Stokes rv1 Mark Claire, RN RN rs5 Darline Rosen RN RN nj1 Corrections: (The following items were deleted from the chart) 14:46 14:46 BASIC METABOLIC PANEL+C.LAB.BRZ ordered. EDMS EDMS 14:46 14:46 CBC+H.LAB.BRZ ordered. EDMS EDMS 14:46 14:46 D-DIMER+COAG.LAB.BRZ ordered. EDMS EDMS 14:46 14:46 HEPATIC FUNCTION+C.LAB.BRZ ordered. EDMS EDMS 14:46 14:46 MAGNESIUM+C.LAB.BRZ ordered. EDMS EDMS 14:46 14:46 Troponin High Sensitivity+C.LAB.BRZ ordered. EDMS EDMS 14:46 14:46 TEST, SERUM+SC.LAB.BRZ ordered. EDMS EDMS 14:46 14:46 Chest Single View+RAD.RAD.BRZ ordered. EDMS EDMS 16:34 16:34 Chest For PE Angio+CT.RAD.BRZ ordered. EDMS EDMS 20:40 19:06 rt rv1
[2024-02-07] MEDS ORDERED: NITROGLYCERIN 0.4 MG/TAB SL ONE ×2 (19:17→19:45)
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
[2024-02-07] MEDS ORDERED: ZOLPIDEM TARTRATE 5 MG TABLET PO PRN (19:43)
[2024-02-07] MEDS ORDERED: ACETAMINOPHEN 500 MG TAB PO PRN (19:43)
[2024-02-07] MEDS ORDERED: HYDROCODONE/APAP 5/325 MG TAB PO PRN (19:47)
[2024-02-07] MEDS ORDERED: NITROGLYCERIN 0.4 MG/TAB SL PRN (19:49)
[2024-02-07] MEDS: ATORVASTATIN 40 MG TAB PO SCH (22:13)
[2024-02-07 23:05] LABS: Specific Gravity > 1.030 (1.005-1.030); Sqamous Epithelial <5 /HPF (None Seen); Urine Bacteria <20 /HPF (<20); Urine Bilirubin NEGATIVE (Negative); Urine Blood Negative (Negative); Urine Clarity Clear (Clear); Urine Color Colorless (Yellow); Urine Culture Reflex Order NOT NEEDED; Urine Glucose NEGATIVE (Negative); Urine Ketones NEGATIVE (Negative); Urine Microscopic Reflex YN ORDER UMIC; Urine Mucus Slight /HPF (None Seen); Urine Nitrite NEGATIVE (Negative); Urine Protein NEGATIVE (Negative); Urine RBC <5 /HPF (None Seen); Urine Urobilinogen Normal (Normal); Urine WBC <5 /HPF (<5)
[2024-02-07 23:17] VITALS: BMI 26.6
[2024-02-08] MEDS: CODEINE 30MG/APAP 300MG TAB PO PRN ×2 (01:11→23:56)
[2024-02-08 04:08] LABS: Absolute Basophils 0.1 K/uL (0-0.5); Absolute Eosinophils 0.1 K/uL (0-0.5); Absolute Lymphocytes (CBC) 3.1 K/uL (0.7-4.9); Absolute Monocytes 0.7 K/uL (0.1-1.3); Absolute Neutrophil 6.3 K/uL (1.8-8.0); Basophils % 0.9 % (0-1.3); Eosinophils % 1.2 % (0-4.4); Hematocrit 28.1 % (36.0-45.0); Hemoglobin 8.3 g/dL (12.0-15.0); Lymphocytes % 30.3 % (15.3-44.8); MCHC 29.6 g/dL (32.0-36.0); MPV 8.8 fL (7.6-11.3); Monocytes % 6.5 % (3.3-12.3); Neutrophils % 61.1 % (41.7-73.7); Platelets 403 thou/uL (152-406); RBC Red Blood Cell Count 4.61 M/uL (3.86-4.86); Red Cell Distribution Width 19.9 % (12.1-15.2)
[2024-02-08 04:23] LABS: Albumin 3.4 g/dL (3.4-5.0); Anion Gap 6.5 mEq/L (5.0-15.0); Bilirubin Total 0.3 mg/dL (0.2-1.0); Globulin 3.4 g/dL (2.3-3.5); Potassium 3.5 mEq/L (3.5-5.1); Protein, Total 6.8 g/dL (6.4-8.2)
[2024-02-08] MEDS: PANTOPRAZOLE 40MG TABLET PO SCH (05:28)
[2024-02-08] MEDS: ESCITALOPRAM 20 MG TAB PO SCH (08:46)
[2024-02-08] MEDS: ENOXAPARIN 40 MG/0.4 ML SQ SCH (08:46)
[2024-02-08] MEDS: POTASSIUM 25 MEQ EFFERV TAB PO ONE (08:47)
[2024-02-08] MEDS: ASPIRIN EC 81 MG TAB PO SCH (08:47)
--- NOTE | 2024-02-08 14:01 | P.CNS ---
Date of Consult: 02/08/24 Chief Complaint: Chest Pain History of Present Illness: Patient presented with left sided chest pain that lasted all day yesterday got relieved by NTG x3, denies having any other cardiac symptoms. Allergies No Known Allergies Allergy (Verified 02/08/24 01:02) Home Medications: Escitalopram [Lexapro] 20 mg PO DAILY 08/20/16 Acetaminophen with Codeine [Acetaminophen-Cod #4 Tablet] 1 tab PO BEDTIME PRN 02/08/24 - Past Medical/Surgical History Diabetic: No -: Depression -: breast augmentation - Social History Smoking Status: Never smoker Alcohol use: No CD- Drugs: No Caffeine use: Yes Place of Residence: Home Review of Systems 10-point ROS is otherwise unremarkable Physical Examination Temp Pulse Resp BP Pulse Ox 96.6 F L 68 16 118/54 L 99 02/08/24 12:00 02/08/24 12:00 02/08/24 12:00 02/08/24 12:00 02/08/24 12:00 General: Alert, Oriented x3 HEENT: Atraumatic Neck: Supple Respiratory: Clear to auscultation bilaterally Cardiovascular: No edema, Normal S1 S2 Gastrointestinal: Normal bowel sounds Laboratory Data (last 24 hrs) 02/07/24 02/07/24 15:08 15:08 WBC 7.40 Hgb 8.9 L Hct 29.7 L Plt Count 400 Sodium 139 Potassium 3.3 L BUN 17 Creatinine 0.85 Glucose 122 H Magnesium 1.8 Total Bilirubin 0.4 AST 18 ALT 21 Alkaline Phosphatase 107 - Problems (1) Unstable angina Current Visit: Yes Status: Acute Plan: Please keep patient NPO for nuclear stress test in the morning. order nuclear stress test in am.
[2024-02-08 15:12] LABS: Absolute Basophils 0.1 K/uL (0-0.5); Absolute Eosinophils 0.1 K/uL (0-0.5); Absolute Lymphocytes (CBC) 2.1 K/uL (0.7-4.9); Absolute Monocytes 0.4 K/uL (0.1-1.3); Absolute Neutrophil 5.6 K/uL (1.8-8.0); Basophils % 0.9 % (0-1.3); Eosinophils % 1.1 % (0-4.4); Hematocrit 29.5 % (36.0-45.0); Hemoglobin 8.9 g/dL (12.0-15.0); Lymphocytes % 25.4 % (15.3-44.8); MCH 18.4 pg (27.0-35.0); MCHC 30.3 g/dL (32.0-36.0); MCV 60.8 fL (80-100); MPV 8.5 fL (7.6-11.3); Monocytes % 5.4 % (3.3-12.3); Neutrophils % 67.2 % (41.7-73.7); Percent Reticulocyte Count 1.22 % (0.4-2.05); Platelets 406 thou/uL (152-406); RBC Red Blood Cell Count 4.86 M/uL (3.86-4.86); Red Cell Distribution Width 19.9 % (12.1-15.2)
--- NOTE | 2024-02-08 15:55 | P.PN ---
Subjective Date of Service: 02/08/24 Chief Complaint: Chest Pain chest pain relieved with as needed analgesics, nitro, n.p.o. overnight for stress test in the a.m. - Physical Exam General: Alert, In no apparent distress, Oriented x3 HEENT: Atraumatic, Normocephalic, PERRLA, Mucous membr. moist/pink Neck: Supple, 2+ carotid pulse no bruit Respiratory: Clear to auscultation bilaterally, Normal air movement Cardiovascular: No edema, Normal pulses, Regular rate/rhythm, Normal S1 S2 Capillary refill: <2 Seconds Gastrointestinal: Normal bowel sounds, Soft and benign, W/out hepatosplenomegaly Musculoskeletal: No clubbing, No swelling, No contractures Integumentary: No rashes, No breakdown Neurological: Normal speech, Normal strength at 5/5 x4 extr, Cranial nerves 3-12 intact, Normal reflexes 2+, Normal affect Lymphatics: No axilla or inguinal lymphadenopathy c Review of Systems Per HPI Physical Examination - Vital Signs Temperature: 96.6 F Blood Pressure: 118/54 Pulse: 68 Respirations: 16 Pulse Ox (%): 99 - Studies Laboratory Data (last 24 hrs) 02/07/24 02/07/24 15:08 15:08 WBC 7.40 Hgb 8.9 L Hct 29.7 L Plt Count 400 Sodium 139 Potassium 3.3 L BUN 17 Creatinine 0.85 Glucose 122 H Magnesium 1.8 Total Bilirubin 0.4 AST 18 ALT 21 Alkaline Phosphatase 107 Assessment And Plan - Plan Assessment and Plan - Problems (Diagnosis) (1) Unstable angina Current Visit: Yes Status: Acute Plan: Serial cardiac enzymes negative Will monitor telemetry Started on aspirin and statin EKG did not show any acute changes sinus ST-T suggestive of ischemia Patient denies any chest pain Will get an echocardiogram Cardiology consult 02/07 n.p.o. for stress test in a.m. Cholelithiasis Current Visit: Yes Status: Chronic Plan: No signs of any acute cholecystitis Denies any pain in the abdomen Gorman sign is negative Follow-up with surgery as outpatient Anemia Iron panel B12 Full code DVT Diet n.p.o. after midnight Disposition Home in the in the a.m. independent Discharge Plan: Home - Code Status/Comfort Care Code Status: Full Code Critical Care: No Time Spent Managing PTS Care (In Minutes): 35
[2024-02-08 15:56] LABS: Blood Morphology Comment NOTED (NOT SEEN); Hypochromasia 2+; Microcytosis 2+; Platelet Estimate ADEQ; White Blood Cell Scan OK (OK)
[2024-02-08] MEDS: FE SULF/FA/VIT B COMP & C TAB PO SCH (17:41)
[2024-02-08] MEDS: SOD FERRIC GLUC COMPLX/SUCROSE 125 MG in NA CHLORIDE 0.9% 100 ML IV SCH (21:47)
[2024-02-08] MEDS: ONDANSETRON 4 MG/2 ML VIAL IV PRN (23:28)
[2024-02-09 03:02] VITALS: O2SAT 98
--- NOTE | 2024-02-09 07:36 | P.PN ---
Subjective Date of Service: 02/09/24 Chief Complaint: Chest Pain chest pain relieved with as needed analgesics, nitro, n.p.o. overnight for stress test in the a.m. - Physical Exam General: Alert, In no apparent distress, Oriented x3 HEENT: Atraumatic, Normocephalic, PERRLA, Mucous membr. moist/pink Neck: Supple, 2+ carotid pulse no bruit Respiratory: Clear to auscultation bilaterally, Normal air movement Cardiovascular: No edema, Normal pulses, Regular rate/rhythm, Normal S1 S2 Capillary refill: <2 Seconds Gastrointestinal: Normal bowel sounds, Soft and benign, W/out hepatosplenomegaly Musculoskeletal: No clubbing, No swelling, No contractures Integumentary: No rashes, No breakdown Neurological: Normal speech, Normal strength at 5/5 x4 extr, Cranial nerves 3-12 intact, Normal reflexes 2+, Normal affect Lymphatics: No axilla or inguinal lymphadenopathy c Physical Examination - Vital Signs Temperature: 97.0 F Blood Pressure: 114/68 Pulse: 78 Respirations: 14 Pulse Ox (%): 99 Assessment And Plan - Plan Assessment and Plan - Problems (Diagnosis) (1) Unstable angina Current Visit: Yes Status: Acute Plan: Serial cardiac enzymes negative Will monitor telemetry Started on aspirin and statin EKG did not show any acute changes sinus ST-T suggestive of ischemia Patient denies any chest pain Will get an echocardiogram Cardiology consult /3 n.p.o. for stress test in a.m. Cholelithiasis Current Visit: Yes Status: Chronic Plan: No signs of any acute cholecystitis Denies any pain in the abdomen Gorman sign is negative Follow-up with surgery as outpatient Anemia Iron panel B12 Full code DVT Diet n.p.o. after midnight Disposition Home in the in the a.m. independent
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
[2024-02-09] MEDS ORDERED: REGADENOSON 0.4 MG/5 ML SYR IV ONE (09:40)
[2024-02-09] MEDS ORDERED: ONDANSETRON 4 MG/2 ML VIAL ONE (10:04)
--- NOTE | 2024-02-09 10:54 | P.PN ---
Subjective Date of Service: 02/09/24 Chief Complaint: Chest Pain Subjective: No new changes Review of Systems 10-point ROS is otherwise unremarkable Physical Examination - Vital Signs Temperature: 97.1 F Blood Pressure: 110/56 Pulse: 66 Respirations: 14 Pulse Ox (%): 96 - Physical Exam General: Alert, Oriented x3 HEENT: Atraumatic Neck: Supple, JVD not distended Respiratory: Clear to auscultation bilaterally Cardiovascular: No edema, Normal S1 S2 Gastrointestinal: Normal bowel sounds Assessment And Plan - Current Problems (Diagnosis) (1) Unstable angina Current Visit: Yes Status: Acute Plan: Pending stress test results, if normal then can go home, if not then NPO after midnight for cath in am.
--- NOTE | 2024-02-09 11:04 | RAD REPORT ---
EXAM DESCRIPTION: NM - Rest Stress Cardiac Imaging - 02/09/2024 10:39 am CLINICAL HISTORY: CP COMPARISON: Chest Single View dated 02/07/2024 TECHNIQUE: The patient was administered approximately 10.3 mCi of Tc 99m Sestamibi prior to resting SPECT imaging of the heart. The patient was then administered approximately 27.6 mCi of Tc 99m Sestam ibi following exercise or pharmacologic stress. Multiplanar SPECT images were reviewed. FINDINGS: No stress induced ischemic defect is seen to suggest stress induced ischemia. Moderate-siz ed fixed defect along the anterior wall mid to apical segments of probably involving the apex as well , suggesting sequelae of a remote infarct. Questionable moderate-sized defect along the inferior wall mid to basal segment and adjacent lateral wall basal segment, favored to be artifactual given extens isauro splanchnic uptake both on stress and rest images. The end diastolic volume is 61 ml, the end systolic volume is 18 ml, and the ejection fraction is 71 %. IMPRESSION: No evidence of stress induced ischemia. Moderate-sized anterior wall defect, possibly involving the apex as well, suggesting sequelae of a re mote infarct. Questionable moderate-sized inferior wall and adjacent lateral wall basal defect, favored to be artif actual, related to splanchnic uptake. Decreased end systolic volume, please correlate for presence of longstanding hypertension. Normal lef t ventricular ejection fraction.
[2024-02-09] MEDS: SOD FERRIC GLUC COMPLX/SUCROSE 125 MG in NA CHLORIDE 0.9% 100 ML IV SCH (11:36)
--- NOTE | 2024-02-09 13:07 | TREADPHA ---
DX: CHEST PAIN Date of Study: 02/09/2024 Ht: 5' 5 " Wt: 160 lb 0 oz Consulting Physician: XI MEDICATIONS: TYLENOL, TYLENOL #3, ASPIRIN, LIPITOR, LOVENOX, LEXAPRO, HEMOCYTE PLUS, NITROSTAT, ZOFRAN, PROTONIX, AMBIEN HISTORY: HISTORY OF ANXIETY. NO OTHER MEDICAL HISTORY PER PATIENT. PHYSICIAL EXAMINATION: RESTING B.P.: 124/85 RESTING H.R.: 78 RESTING EKG: SINUS RHYTHM PROTOCOL: PHARMACOLOGIC EXERCISE TIME: 3:30 B.P. AT PEAK STRESS: 122/70 IMPRESSION: LEXISCAN STRESS TEST PERFORMED ORDERED. CARDIOLITE INJECTED PER PROTOCOL (SEE NUCLEAR MEDICINE REPORT). NO VENTRICULAR TACHYCARDIA, SUPRAVENTRICULAR TACHYCARDIA, OR ARRHYTHMIAS NOTED DURING PROCEDURE. DENIES SHORTNESS OF BREATH. ZOFRAN 4 mg GIVEN FOR NAUSEA ORDERED NEEDED, NAUSEA RESOLVED.
[2024-02-09 13:57] VITALS: BP 129/58; TEMP 97.3
--- NOTE | 2024-02-09 15:44 | EKG ---
Test Date: 2024-02-07 Test Time: 14:48:[address]: THELMA MEASUREMENT RESULTS: Intervals: Rate: 94 RI: 168 QRSD: 64 QT: 346 QTc: 432 [place]: P: 59 RI: 168 QRS: 67 T: 60 INTERPRETIVE STATEMENTS: Normal sinus rhythm Septal infarct, age undetermined Abnormal ECG No previous ECG available for comparison Electronically Signed On 02-09-24 15:40:16 CDT by Meliton Elizondo
== END 2024-02-09 13:00 | disposition home or self-care (01) ==
LOC: ER 14:31 → ERHOLD 19:43 → 4TH 21:15
PROVIDERS: ADMIT Family Medicine; ATTEND Hospitalist
DX: I20.0 Unstable angina (principal); F41.9 Anxiety disorder, unspecified; K80.20 Calculus of gallbladder without cholecystitis without obstruction; M54.2 Cervicalgia
CPT/HCPCS: 36415; 71045; 71275; 78452; 80048; 80053; 80061; 80076; 81001; 82607; 83036; 83540; 83735; 84484; 84703; 85025; 85044; 85379; 86850; 86900; 86901; 93005; 93017; 96374; 96375; 99285; A9500; G0378; J1650; J2405; J2785; J2916; Q9967

== ENCOUNTER 2024-02-13 22:50 | Emergency (ER) | payer OTHER ==
[2024-02-14] MEDS ORDERED: CEPHALEXIN 250 MG CAP ONE (00:25)
[2024-02-14] MEDS ORDERED: SMZ./TMP. 800/160 MG TABLET ONE (00:26)
--- NOTE | 2024-02-14 01:00 | EDPHYS ---
Physician Documentation [facility] Name: Rand Prieto Age: 43 yrs Sex: Female : 1980 Arrival Date: 02/13/2024 Time: 22:50 Bed 13 Private MD: ED Physician Ruben Phan HPI: 02/12 22:54 This 43 yrs old Other Female presents to ER via Unassigned with complaints of Arm sp4 swelling due to IV taken out. 02/13 21:37 Very pleasant female presents with right arm redness at the site of IV. Patient states sp4 she was admitted here and discharged on . IV from the right arm was taken out 5 days ago on . Patient then developed redness pain and swelling surrounding IV site tracking upward into her right arm. Patient is here to make sure she does not have a DVT. . 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 - Infectious Disease History:: Denies. - Social history:: Smoking status: Patient denies any tobacco usage or history of. - Family history:: not pertinent. ROS: 02/13 21:38 Constitutional: Negative for fever, chills, and weight loss, positive for right redness sp4 swelling tenderness associated with the recent IV stick All other systems are negative, Exam: 21:38 Constitutional: This is a well developed, well nourished patient who is awake, alert, sp4 and in no acute distress. Head/Face: Normocephalic, atraumatic. Eyes: Pupils equal round and reactive to light, extra-ocular motions intact. Lids and lashes normal. Conjunctiva and sclera are not injected. Cornea within normal limits. Periorbital areas with no swelling, redness, or edema. ENT: Nares patent. No nasal discharge, no septal abnormalities noted. Tympanic membranes are normal and external auditory canals are clear. Oropharynx with no redness, swelling, or masses, exudates, or evidence of obstruction, uvula midline. Mucous membranes moist. Neck: Trachea midline, no thyromegaly or masses palpated, and no cervical lymphadenopathy. Supple, full range of motion without nuchal rigidity, or vertebral point tenderness. Chest/axilla: Normal chest wall appearance and motion. Nontender with no deformity. No lesions are appreciated. Cardiovascular: Regular rate and rhythm with a normal S1 and S2. No gallops, murmurs, or rubs. Normal PMI, no JVD. No pulse deficits. Respiratory: Lungs have equal breath sounds bilaterally, clear to auscultation and percussion. No rales, rhonchi or wheezes noted. No increased work of breathing, no retractions or nasal flaring. Abdomen/GI: Soft, with normal bowel sounds. No distension or tympany. No guarding or rebound. No evidence of tenderness throughout. Back: No spinal tenderness. No costovertebral tenderness. Skin: Warm, dry with normal turgor. Normal color with no rashes, no lesions, right arm AC puncture wound from recent IV stick associated with mild degree of cellulitis with signs of thrombophlebitis with ascending redness up the right arm. MS/ Extremity: Pulses equal, no cyanosis. Neurovascular intact. Full, normal range of motion. Neuro: Awake and alert, GCS 15, oriented to person, place, time, and situation. Cranial nerves II-XII grossly intact. Motor strength 5/5 in all extremities. Sensory grossly intact. Psych: Awake, alert, with orientation to person, place and time. Behavior, mood, and affect are within normal limits Vital Signs: 02/12 23:18 BP 124 / 77; Pulse 92; Resp 18 S; Temp 98.7(O); Pulse Ox 100% on R/A; Weight 72.57 kg as6 (R); Height 5 ft. 5 in. (R); Pain 2/10; 02/13 00:56 BP 121 / 91; Pulse 83; Resp 17; Temp 98.2; Pulse Ox 99% on R/A; vk 02/12 23:18 Body Mass Index 26.63 (72.57 kg, 165.1 cm) as6 02/12 23:18 Pain Scale: Adult as6 MDM: 02/12 22:56 Patient medically screened. sp4 02/13 00:54 ED course: 43 years Female Right arm swelling and pain COMPARISON: None TECHNIQUE: sp4 Real-time and Doppler sonography of the superficial and deep venous system of the right upper extremity was performed. Grayscale, color, and spectral analysis was utilized. FINDINGS: Intraluminal thrombus is seen involving the right cephalic vein. This is consistent with artificial venous thrombosis. No additional intraluminal thrombus seen. Compressibility identified at remaining levels. No sonographic evidence for deep venous fibrosis. IMPRESSION: Findings positive for superficial venous thrombosis right cephalic vein. No sonographic evidence for deep venous thrombosis involving the right upper extremity. Electronically signed by: Karolina Alarcon MD 02/14/2024 12:31 AM CDT . 21:38 Differential Diagnosis altered mental status, sepsis, flu, Thrombophlebitis. Data sp4 reviewed: vital signs, nurses notes, radiologic studies, ultrasound. ED course: Ultrasound has signs of cephalic vein thrombosis without DVT. Patient will be prescribed Bactrim and Keflex for acute thrombophlebitis. . 02/12 23:40 Order name: Extremity Venous Uni Ltd sp4 Administered Medications: 00:25 Drug: Trimethoprim-Sulfamethoxazole PO (160 mg-800 mg (DS) 1 tablet PO once Route: PO; vc1 01:25 Follow up: Response: No adverse reaction ha1 00:25 Drug: Cephalexin PO 500 mg PO once Route: PO; vc1 01:25 Follow up: Response: No adverse reaction ha1 Disposition Summary: 02/14/24 00:59 Discharge Ordered Notes: Location: Home sp4 Problem: new sp4 Symptoms: have improved sp4 Condition: Stable sp4 Diagnosis - Phlebitis and thrombophlebitis of unspecified site sp4 Followup: sp4 - With: Private Physician - When: 7 - 10 days - Reason: Recheck today's complaints Discharge Instructions: - Discharge Summary Sheet sp4 - Thrombophlebitis sp4 Forms: - Patient Portal Instructions sp4 Prescriptions: - Cephalexin 500 mg Oral Capsule - take 1 capsule ORAL route every 12 hours for 10 days; 20 capsule; Refills: 0, sp4 Product Selection Permitted - Bactrim DS 800-160 mg Oral Tablet - take 1 tablet ORAL route every 12 hours for 10 days; 20 tablet; Refills: 0, sp4 Product Selection Permitted Signatures: Dispatcher [employer] Akira Aguirre RN RN as6 Trista Mercado RN RN vc1 Ruben Phan MD MD sp4 Tona Pascual RN ha1
--- NOTE | 2024-02-14 01:00 | ER ---
Nurse's Notes [facility] Name: Rand Prieto Age: 43 yrs Sex: Female : 1980 Arrival Date: 02/13/2024 Time: 22:50 Bed 13 Private MD: Diagnosis: Phlebitis and thrombophlebitis of unspecified site Presentation: 02/12 23:18 Chief complaint: Patient states: pt was recently was admitted here is experiencing pain as6 at her IV site. pt had a virtual visit and was told to come here to get check for a blood clot. Coronavirus screen: At this time, the client does not indicate any symptoms associated with coronavirus-19. Ebola Screen: No symptoms or risks identified at this time. Initial Sepsis Screen: Does the patient meet any 2 criteria? No. Patient's initial sepsis screen is negative. Does the patient have a suspected source of infection? No. Patient's initial sepsis screen is negative. Risk Assessment: Do you want to hurt yourself or someone else? Patient reports no desire to harm self or others. Onset of symptoms was February 13, 2024. 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 - Infectious Disease History:: Denies. - Social history:: Smoking status: Patient denies any tobacco usage or history of. - Family history:: not pertinent. Screenin/09 01:23 [facility] ED Fall Risk Assessment (Adult) History of falling in the last 3 months, ha1 including since admission No falls in past 3 months (0 pts) Confusion or Disorientation No (0 pts) Intoxicated or Sedated No (0 pts) Impaired Gait No (0 pts) Mobility Assist Device Used No (0 pt) Altered Elimination No (0 pt) Score/Fall Risk Level 0 - 2 = Low Risk Oriented to surroundings, Maintained a safe environment, Hourly rounding (assess needs \T\ fall precautionary measures) done. Abuse screen: Denies threats or abuse. Denies injuries from another. Nutritional screening: No deficits noted. Tuberculosis screening: No symptoms or risk factors identified. Assessment: 00:48 General: Appears in no apparent distress. uncomfortable, Behavior is calm, cooperative, vc1 appropriate for age. Pain: Complains of pain in right antecubital area Pain does not radiate. Quality of pain is described as pressure. Neuro: Level of Consciousness is awake, alert, obeys commands, Oriented to person, place, time, situation, Appropriate for age. Cardiovascular: No deficits noted. Respiratory: Airway is patent Respiratory effort is even, unlabored, Respiratory pattern is regular, symmetrical, Breath sounds are clear bilaterally. GI: No deficits noted. No signs and/or symptoms were reported involving the gastrointestinal system. : No deficits noted. No signs and/or symptoms were reported regarding the genitourinary system. EENT: No deficits noted. No signs and/or symptoms were reported regarding the EENT system. Derm: Skin is intact, Wound noted right antecubital area. Musculoskeletal: No deficits noted. No signs and/or symptoms reported regarding the musculoskeletal system. 01:23 Reassessment: Patient and/or family updated on plan of care and expected duration. Pain ha1 level reassessed. Patient is alert, oriented x 3, equal unlabored respirations, skin warm/dry/pink. Vital Signs: 02/12 23:18 BP 124 / 77; Pulse 92; Resp 18 S; Temp 98.7(O); Pulse Ox 100% on R/A; Weight 72.57 kg as6 (R); Height 5 ft. 5 in. (R); Pain 2/10; 02/13 00:56 BP 121 / 91; Pulse 83; Resp 17; Temp 98.2; Pulse Ox 99% on R/A; vk 02/12 23:18 Body Mass Index 26.63 (72.57 kg, 165.1 cm) as6 02/12 23:18 Pain Scale: Adult as6 ED Course: 02/12 22:53 Patient arrived in ED. ra3 22:54 Ruben Phan MD is Attending Physician. sp4 23:18 Arm band placed on. as6 23:23 Triage completed. as6 23:25 Patient has correct armband on for positive identification. Placed in gown. Bed in low ha1 position. Call light in reach. Side rails up X 1. 04 00:20 Extremity Venous [facility] US In Process Unspecified. EDMS 00:48 Trista Mercado, RN is Primary Nurse. vc1 01:24 No provider procedures requiring assistance completed. Patient did not have IV access ha1 during this emergency room visit. 01:25 Provided Education on: FOLLOW UPS . ha1 Administered Medications: 00:25 Drug: Trimethoprim-Sulfamethoxazole PO (160 mg-800 mg (DS) 1 tablet PO once Route: PO; vc1 01:25 Follow up: Response: No adverse reaction ha1 00:25 Drug: Cephalexin PO 500 mg PO once Route: PO; vc1 01:25 Follow up: Response: No adverse reaction ha1 Medication: 01:24 VIS not applicable for this client. ha1 Outcome: 00:59 Discharge ordered by . harjit 01:24 Discharged to home ambulatory, ha1 01:24 Condition: stable 01:24 Discharge instructions given to patient, Instructed on discharge instructions, follow up and referral plans. medication usage, Demonstrated understanding of instructions, follow-up care, medications, Prescriptions given X 2, 01:25 Patient left the ED. ha1 Signatures: Dispatcher [employer] EDMS Akira Ratliff RN RN as6 Trista Mercado, OSMAR RN 1 Tona Pascual RN RN ha1 Ruben Phan MD MD sp4 Alva, Ruby ra3 Kruse, Vivian vk
[2024-02-14 06:14] VITALS: BP 121/91; TEMP 98.2; O2SAT 99
--- NOTE | 2024-02-14 13:36 | RAD REPORT ---
EXAM DESCRIPTION: US - Extremity Venous [facility] - 02/14/2024 12:19 am CLINICAL HISTORY: 43 years Female Right arm swelling and pain COMPARISON: None TECHNIQUE: Real-time and Doppler sonography of the superficial and deep venous system of the right u pper extremity was performed. Grayscale, color, and spectral analysis was utilized. FINDINGS: Intraluminal thrombus is seen involving the right cephalic vein. This is consistent with a rtificial venous thrombosis. No additional intraluminal thrombus seen. Compressibility identified at remaining levels. No sonographic evidence for deep venous fibrosis. IMPRESSION: Findings positive for superficial venous thrombosis right cephalic vein. No sonographic evidence for deep venous thrombosis involving the right upper extremity. Electronically signed by: Karolina Alarcon MD 02/14/2024 12:31 AM CDT Due to temporary technical issues with the PACS/Fluency reporting system, reports are being signed by the in house radiologists without review as a courtesy to insure prompt reporting. The interpreting radiologist is fully responsible for the content of the report.
== END 2024-02-14 01:25 | disposition home or self-care (01) ==
LOC: ER 22:50
DX: I80.8 Phlebitis and thrombophlebitis of other sites (principal)
CPT/HCPCS: 93971; 99283